=== PATIENT | female | born 1990 | race Caucasian/White ===

== ENCOUNTER 2023-11-20 09:10 | Outpatient (AMB) | payer OTHER, SELFPAY ==
--- NOTE | 2023-11-20 10:32 | MHC.OFFWIV ---
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 Denies hearing loss, drainage from ear, ringing in the ear, dizziness, syncope. Patient denies sore throat, cough, fever, vomiting, diarrhea, headache. Patient denies current use of OCP. PFSH Social History Patient Tobacco Use Status: Never used Tobacco Patient : No Review of Systems Const All systems reviewed & are unremarkable except as noted in HPI and below Physical Exam Vital Signs: Last Vital Signs Temp 97.9 F 11/20/23 10:44 Pulse 92 11/20/23 10:44 BP 120/80 11/20/23 10:44 Pulse Ox 96 11/20/23 10:44 Oxygen Delivery Method Room Air 11/20/23 10:44 BMI result Body Mass Index 26.5 General: awake, alert, oriented. Answers questions appropriately. Fully engaged in examination. Skin: warm, dry, intact HEENT: Normocephalic. Hearing intact. Left TM erythematous, cloudy. Right TM normal to visual inspection. +cerumen bilaterally Cardiac: External chest normal in appearance. Respiratory: No cough, audible wheezing or stridor. Abdomen: without gross distension. MS: No obvious swelling or deformities. Neurological: Oriented to person, place, time and situation. Thought process intact. Psychiatric: Appropriate mood and affect. Good judgment and insight. Assessment & Plan Assessment & Plan (1) Left otitis media: Code(s): H66.92 - Otitis media, unspecified, left ear Plan presented to [facility] today with complaints of left ear pain Augmentin DS BID for 7 days. Drink plenty of fluids, avoid getting anything in the ear, tylenol/motrin as needed. All questions and concerns were addressed during the visit, patient agrees with the plan. Follow up with pcp or in walkin for any new or worsening symptoms. Medications: New amoxicillin-pot clavulanate 875-125 mg 1 tab PO BID 14 tabs 0RF Coding Level of Care Code New Pt Level 4 (61616) Diagnoses Left otitis media H66.92
[2023-11-20 10:44] VITALS: BP 120/80; PULSE 92; TEMP 36.6; O2SAT 96; BMI 26.5
== END 2023-11-20 11:31 | disposition home or self-care (01) ==
PROVIDERS: Visit Provider Registered Nurse Emergency
DX: H66.92 Otitis media, unspecified, left ear (principal)
CPT/HCPCS: 99204

== ENCOUNTER 2023-11-27 08:19 | Outpatient (AMB) | payer OTHER, SELFPAY ==
[2023-11-27 08:34] VITALS: BP 112/70; PULSE 64; TEMP 36.8; O2SAT 97; BMI 26.5
--- NOTE | 2023-11-27 08:34 | MHC.OFFWIV ---
Intake Vital Signs 11/27/23 08:34 Height 5 ft 5 in Weight 159 lb BMI 26.5 BP 112/70 Blood Pressure Location Lt brachial Position Sitting Pulse 64 Pulse Source Pulse Oximeter Temp 98.2 F Temp Source Temporal Artery Scan Pulse Oximetry (%) 97 Oxygen Delivery Method Room Air Intake Visit Reasons: EP Ear infection unable to hear (masked) Intake Note: pt is here today for ear infection unable to hear started 1 week ago Patient Tobacco Use Status: Never used Tobacco Allergies No Known Allergies Allergy (Verified 11/27/23 08:34) Do you need a note to return to daycare/school/sports/work: No HPI HPI Comments History of Present Illness Details presents to walkin today with complaints of persistent left ear pain and sinus congestion for last 10 days. Now with cough for last 5 days, nonproductive, worse with cold air. Denies history of asthma or RAD Treated one week ago for left ear infection, reports does not feel any improvement in left ear symptoms Denies drainage from ear, ringing in the ear, dizziness, syncope. Patient denies sore throat, fever, vomiting, diarrhea, headache. PFSH Social History Patient Tobacco Use Status: Never used Tobacco Review of Systems Const All systems reviewed & are unremarkable except as noted in HPI and below Physical Exam Vital Signs: Last Vital Signs Temp 98.2 F 11/27/23 08:34 Pulse 64 11/27/23 08:34 BP 112/70 11/27/23 08:34 Pulse Ox 97 11/27/23 08:34 Oxygen Delivery Method Room Air 11/27/23 08:34 BMI result Body Mass Index 26.5 General: awake, alert, oriented. Answers questions appropriately. Fully engaged in examination. Skin: warm, dry, intact HEENT: Normocephalic. Hearing intact. Left TM erythematous, Right TM normal to visual inspection. +cerumen bilaterally Cardiac: External chest normal in appearance. Respiratory: No cough, audible wheezing or stridor. LSCTAB. Abdomen: without gross distension. MS: No obvious swelling or deformities. Neurological: Oriented to person, place, time and situation. Thought process intact. Psychiatric: Appropriate mood and affect. Good judgment and insight. Assessment & Plan Assessment & Plan (1) Left otitis media: Code(s): H66.92 - Otitis media, unspecified, left ear Plan URI, no abx warranted. Left ear discomfort, erythema persist. Likely Viral. Benzonatate 100mg po bid as needed Prednisone 40mg po daily X 5 days Meloxicam 7.5mg daily X 10 days Rest, drink plenty of fluids, tylenol as needed. Follow up with pcp or in clinic for any new or worsening symptoms. Go to ER for shortness of breath, chest pain, palpitations, weakness, dizziness. Medications: New benzonatate 100 mg PO BID PRN 20 caps 0RF cough meloxicam 7.5 mg PO DAILY 10 tabs 0RF prednisone 40 mg (2 x 20 mg) PO DAILY 5 days 10 tabs 0RF Coding Level of Care Code Est Pt Level 4 (66340) Diagnoses Left otitis media H66.92
== END 2023-11-27 09:50 | disposition home or self-care (01) ==
PROVIDERS: Visit Provider Registered Nurse Emergency
DX: H66.92 Otitis media, unspecified, left ear (principal)
CPT/HCPCS: 99213

== ENCOUNTER 2025-02-20 10:01 | Outpatient (AMB) | payer OTHER, SELFPAY ==
--- NOTE | 2025-02-20 10:55 | MHC.PC.OV ---
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 known: Yes Last menstrual period: 02/13/25 Allergies No Known Allergies Allergy (Verified 02/20/25 11:08) Medication List - Last Reconciled 02/20/25 by Karin Granados MD propranolol 40 mg PO .Once a day as needed Tobacco use date assessed: 02/20/25 Dental Screening Dental Screen Date: 02/20/25 Did you have a dental visit in the last 12 months?: Yes Did you have a dental problem in the last 6 months where you did not have access to dental care?: No Was dental information given to patient?: Patient has dentist 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 She has no specific concerns at present time. Does not want to get any of the offered vaccines. Has been diagnosed with social anxiety disorder, currently dealing with a through behavioral techniques. Not on any medication [facility] Medical History (Updated 02/20/25 @ 11:27 by Karin Granados MD) Vaccine refused by patient Social anxiety disorder Surgical History (Updated 02/20/25 @ 11:14 by Karin Granados MD) No pertinent past surgical history Family History (Updated 02/20/25 @ 11:15 by Karin Granados MD) Father Bladder cancer Social History Housing: House Patient Tobacco Use Status: Never used Tobacco e-Cigarette/Vaping Use: Never Used service: No Current occupational status: employed Cognitive needs: No Hearing needs: No Vision needs: No Female Reproductive History Menstrual Date of last menstrual period: 02/13/25 History of abnormal pap smear: No Questionnaire PHQ-9 Over the last 2 weeks, how often have you been bothered by any of the following problems? 1. Little interest or pleasure in doing things: not at all 2. Feeling down, depressed, or hopeless: not at all 3. Trouble falling or staying asleep, or sleeping too much: not at all 4. Feeling tired or having little energy: several days 5. Poor appetite or overeating: not at all 6. Feeling bad about yourself - or that you are a failure or have let yourself or your family down: not at all 7. Trouble concentrating on things, such as reading the newspaper or watching television: several days 8. Moving or speaking so slowly that other people could have noticed. Or the opposite - being so fidgety or restless that you have been moving around a lot more than usual: not at all 9. Thoughts that you would be better off or of hurting yourself in some way: not at all Total score: 2 Depression Screening Interpretation: Negative Depression Screening Done: Yes 70725 - PHQ-9 Billing: Yes Source: Developed by Drs. Jose Lyon, Gina Porter, Nestor Becerra and colleagues, with an educational kristine from [employer]. Thrive Questionnaire Date Thrive assessed: 02/14/25 I am a: Patient What is your living situation today?: I have a steady place to live Within the past 12 months, did the food you bought not last and you didn't have the money to get more?: Never true Within the past 12 months, did you worry whether your food would run out before you got money to buy more?: Never true Do you have trouble paying for medicines?: I choose not to answer this question Do you have trouble getting transportation to medical appointments?: No Do you have trouble paying your heating and electricity bill?: I choose not to answer this question Do you have trouble taking care of your child, family member or friend?: No Do you have trouble with day-to-day activities such as bathing, preparing meals, shopping, managing finances, etc.?: No Are you currently unemployed and looking for a job?: No Are you interested in more education?: No Please select the resources that you would like help with: None Currently or been in a relationship where the following occur: I choose not to answer THRIVE Score: 0 AUDIT C Alcohol Use Questionnaire (AUDIT-C) 1. How often do you have a drink containing alcohol?: 2-3 times a week 2. How many drinks containing alcohol do you have on a typical day when you are drinking?: 3 or 4 3. How often do you have six or more drinks on one occasion?: Never Total Score: 4 SARAH-7 AMB Questionnaire SAARH-7 Feeling nervous, anxious, or on edge: 1 = Several days Not being able to stop or control worryin = Several days Worrying too much about different things: 1 = Several days Trouble relaxin = Several days Being so restless that it is hard to sit still: 0 = Not at all Becoming easily annoyed or irritable: 0 = Not at all Feeling afraid as if something awful might happen: 1 = Several days Total SARAH-7 score (0-4 normal; 5-9 mild; 10-14 moderate; 15-21 severe): 5 Source: Developed by Drs. Jose Lyon, Gina Porter, Nestor Becerra and colleagues, with an educational kristine from [employer]. SARAH-7 Assessment Billing SARAH-7 Assessment Tool: SARAH-7 Assessment 80188 Review of Systems Const Reports no additional complaints Eyes Reports no additional complaints ENT Details: Dental prophylaxis q.6 months Card Reports no additional complaints Resp Reports no additional complaints GI Reports no additional complaints Reports no additional complaints Musc Reports no additional complaints Skin/Breast Denies breast pain, Denies breast mass and Denies rash Neuro Reports no additional complaints Psych Reports no additional complaints Endo Reports no additional complaints Raman/Lymph Reports no additional complaints Aller/Immun Reports no additional complaints Physical exam (Primary Care) Vital Signs: Last Vital Signs Temp 98.0 F 02/20/25 10:58 Pulse 75 02/20/25 10:58 Resp 16 02/20/25 10:58 BP 110/72 02/20/25 10:58 Pulse Ox 99 02/20/25 10:58 Oxygen Delivery Method Room Air 02/20/25 10:58 BMI result Body Mass Index 28.0 Tobacco/Smoking Status: Tobacco use Status Tobacco use date assessed 02/20/25 02/20/25 11:04 Patient Tobacco Use Status Never used Tobacco 02/20/25 10:56 e-Cigarette/Vaping Use Never Used 02/20/25 11:04 PHQ-9: PHQ-9 Score PHQ-9: Total score 2 02/25/25 11:42 Depression Screening Interpretation: Negative Thrive Assessment: Date of Thrive Assessment Date Thrive assessed 02/14/25 02/20/25 10:56 Currently or been in a relationship where the following occur: I choose not to answer Const General: no acute distress and alert Orientation/consciousness: patient oriented x3 HENMT Head: Yes normocephalic Ears: external ears normal, TM's normal bilaterally and EAC's normal General nose exam: Normal external nose present Face and sinus: Yes face symmetric Mouth: Normal oral and palatal mucosa present, tongue normal, oropharynx normal and moist mucous membranes Eyes General: appearance normal, both eyes and all related structures Eyelids: Yes eyelids normal Conjunctivae: conjunctivae normal Sclerae: sclerae normal Pupils: Equal, round and reactive pupils present EOM: EOMs intact bilaterally Neck Other: Thyroid nonpalpable Neck: Yes full ROM, Yes no lymphadenopathy and Yes supple Chest Breast/axilla inspection: normal inspection of the breasts Breast/axilla palpation: normal palpation of the breasts Resp Effort & Inspection: normal respiratory effort and able to speak in complete sentences Auscultation: clear to auscultation bilaterally Cardio Rate: regular rate Rhythm: regular rhythm Heart sounds: S1 normal heart sound present and S2 normal heart sound present GI Palpation (GI): Soft to palpation, nontender, no guarding and no masses Auscultation: normal bowel sounds General: Yes no CVA tenderness Back/Spine/Pelvis Back: no CVA tenderness and No back tenderness Skin General skin exam: no rashes or lesions noted Neuro General: patient oriented x3, gait normal, moves all extremities, Normal light touch and pain sensation, no focal motor deficits and CN's II-XI intact bilaterally Cranial nerves: Yes Equal, round and reactive pupils present Cognition (Neuro): normal cognition Gait exam (Neuro): Normal gait present Motor exam (neuro): 5/5 motor strength present throughout Extrem General: Yes normal to inspection, Yes full ROM, Yes no joint enlargement, Yes no pedal edema and Yes normal gait Psych Appearance: grossly normal and well kempt Mental Status: mental status grossly normal Speech and movement: Normal speech and movement present Affect: normal affect Attitude: cooperative Thought process: Normal thought process present Thought content: Normal thought content present Coding Level of Care Code New Pt Prev Care 18-39yr([id number] Diagnoses Annual visit for general adult medical examination with abnormal findings Z00.01 Screening for malignant neoplasm of cervix Z12.4 Vaccine refused by patient Z28.20 Social anxiety disorder F40.10 Additional Codes SARAH-7 Assessment Billing - SARAH-7 Assessment Tool: SARAH-7 Assessment 96620 ([id number]) PHQ-9 - 10456 - PHQ-9 Billing: Yes ([id number]) Assessment & Plan Assessment & Plan (1) Annual visit for general adult medical examination with abnormal findings: Code(s): Z00.01 - Encounter for general adult medical examination with abnormal findings Plan: Will check appropriate labs. Recommended dental visit every 6 months and regular eye exams, at least every 2 years. Take adequate calcium in diet and vitamin-D 3 at 2000 IU per cap once a day, in addition to weight-bearing exercises to help maintain good muscle tone and weight control. Instructed to do self-breast exam, and recommended to get yearly mammogram, starting at age 40. Routine vaccinations declined by patient (2) Screening for malignant neoplasm of cervix: Code(s): Z12.4 - Encounter for screening for malignant neoplasm of cervix Plan: Referred to [facility] for her routine Pap and pelvic exam (3) Vaccine refused by patient: Code(s): Z28.20 - Immunization not carried out because of patient decision for unspecified reason Category: Medical Plan: Patient declining all offered vaccine (4) Social anxiety disorder: Code(s): F40.10 - Social phobia, unspecified Category: Medical Plan: Declined referral for counseling, will place her back on propranolol 40 mg 1 tablet once a day as needed for acute anxiety attacks . Discussed other ways to relieve stress including : exercise or a massage, Get enough rest, Avoid alcohol, caffeine, nicotine, and illegal drugs which can increase your anxiety level and cause sleep problems. Orders: Orders Lipid Panel 02/20/25 Z13.220 - Encounter for screening for lipoid disorders, Z13.1 - Encounter for screening for diabetes mellitus, Z00.01 - Encounter for general adult medical examination with abnormal findings Basic Metabolic Panel Fasting 02/20/25 Z13.220 - Encounter for screening for lipoid disorders, Z13.1 - Encounter for screening for diabetes mellitus, Z00. 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
[2025-02-20 10:58] VITALS: BP 110/72; PULSE 75; RESP 16; TEMP 36.7; O2SAT 99; BMI 28.0
--- OUTSIDE RECORDS SUMMARY | 2025-02-20 11:06 | XMS_ITS | Data Portability ---
Author Organization [facility], [address] Address [address] [place] [address] Assessment No assessment recorded. Plan of Treatment Reminders Order Date Submit Date Provider Last Modified By Organization Details Last Modified Time Details Appointments None recorded. Lab urinalysis, dipstick 2023 024 [place] [address], [address] [place], [address], 17:55:02 test, urine 2023 024 [place] [address], [address] [place], [address], 17:55:01 glucose, fingerstick , blood 2023 024 [place] [address] 21009_[facility], [address] [place], [address], 17:55:00 Referral None recorded. Procedures None recorded. Surgeries None recorded. Imaging None recorded. Medication Orders cephalexin 500 mg capsule [address]/[facility][id number], [address] [facility] [place], [address], 17:54:59 Patient TargetsNo targets recorded. Patient Instructions Encounter Date Encounter Id Patient Instructions Last Modified By Organization Details Last Modified Time 03/20/2024 [id number] specimen collection & handling* ИРИНА Not available 03/20/2024 18:00:40 Reason for Referral None Reported. Results Created Date Observation Date Name Description Value Unit Range Abnormal Flag Note LastModifiedBy Organization Detail LastModifiedTime 03/20/20 24 03/20/2024 gluco se, finge rstic k, blood blood sugar - non fasting 103 mg/dL 80-140 = normal normal Not Available 2099andrés [address] [place], [address], 03/20/2024 16:42:04 03/20/20 24 03/20/2024 gluco se, finge rstic k, blood blood sugar - fasting mg/dL 80-125 = normal Not Available [address]andrés [address] [place], [address], 03/20/2024 16:42:04 03/20/20 24 03/20/2024 pregn ronda test, urine Unknown Analyte negati ve Not Available vy hudson [address] [place], [address], 03/20/2024 16:24:46 03/20/20 24 03/20/2024 pregn ronda test, urine Unknown Analyte yes Not Available [address] [place], [address], 03/20/2024 16:24:46 03/20/20 24 03/20/2024 urina lysis , dipst ick Unknown Analyte Violet Not Available [address] [place], [address], 03/20/2024 16:23:34 03/20/20 24 03/20/2024 urina lysis , dipst ick Unknown Analyte Cloudy Not Available [facility] andrés [address] [place], [address], 03/20/2024 16:23:34 03/20/20 24 03/20/2024 urina lysis , dipst ick Unknown Analyte 100 mg/dL Not Available [address] [place], [address], 03/20/2024 16:23:34 03/20/20 24 03/20/2024 urina lysis , dipst ick Unknown Analyte Negati ve Not Available [address] [place], [address], 03/20/2024 16:23:34 03/20/20 24 03/20/2024 urina lysis , dipst ick Unknown Analyte Negati ve Not Available [address] [place], [address], 03/20/2024 16:23:34 03/20/20 24 03/20/2024 urina lysis , dipst ick Unknown Analyte 1.015 Not Available [address] [place], [address], 03/20/2024 16:23:34 03/20/20 24 03/20/2024 urina lysis , dipst ick Unknown Analyte Modera te Not Available [address] [place], [address], 03/20/2024 16:23:34 03/20/20 24 03/20/2024 urina lysis , dipst ick Unknown Analyte 5.0 Not Available [facility] [place], [address], 03/20/2024 16:23:34 03/20/20 24 03/20/2024 urina lysis , dipst ick Unknown Analyte 100 mg/dL Not Available [address] [place], [address], 03/20/2024 16:23:34 03/20/20 24 03/20/2024 urina lysis , dipst ick Unknown Analyte 1.0 E.U./d L Not Available prabhu hudson [address] [place], [address], 03/20/2024 16:23:34 03/20/20 24 03/20/2024 urina lysis , dipst ick Unknown Analyte Positi ve Not Available 20[address]mona [address] [place], [address], 03/20/2024 16:23:34 03/20/20 24 03/20/2024 urina lysis , dipst ick Unknown Analyte Large Not Available 2099Naomi_ andrés [address], [address], 03/20/2024 16:23:34 Result Notes None recorded. Problems Name Problem SNOMED Code Status Onset Date Resolution Date Notes Provider Name and Address Organization Details Recorded Time Dysuria 06113364 Active 024 FRANK SANDHU [address] [place], [address] , [place] - [facility] 4 16:41:32 Abnormal urine 446329278 Active 024 FRANK SANDHU [address] [place], [address] , [place] - [facility] 16:41:43 Problem Notes None recorded. Medical Equipment None Reported. Allergies No known drug allergies Medications Name Sig Start Date Stop Date Status Note LastModified by Organization Details LastModified Time cephalexin 500 mg capsule Take 1 capsule 3 times a day by oral route for 5 days, for UTI. 024 active Not Available Not Available Not Avai lable Vitals Date Recorded Body height Body mass index (BMI) Body weight Pain severity - 0-10 verbal numeric rating [Score] - Reported Oxygen saturation Oxygen saturation in Arterial blood by Pulse oximetry Heart rate Body temperature Respiratory rate Systolic blood pressure Diastolic blood pressure Provider Name and Address Organization Details Last Updated DateTime 167.64 cm 25.8 kg/m2 83939.7 8 g 5 98 % 98 % 71 /min 97.6 [degF] 18 /min 122 mm[Hg] 75 mm[Hg] Shani Kimbrough [place] - [facility] 16:24:58 Social History Question Answer Notes LastModified by Organizat ion Details LastModified Time Tobacco Smoking Status Never Smoker Shani Kimbrough phoebe [place] - [facility] 03/20/2024 16:23:10 What Is Your Level Of Alcohol Consumption? Occasional Information not available 03/20/2024 Are You Currently Employed? Yes Information not available 03/20/2024 Have You Had A Flu Shot This Season? No Information not available 03/20/2024 Have You Had Direct Contact, Or Contact During Intimacy, With Monkeypox Rash, Scabs, Or Body Fluids From A Person With Monkeypox? No Information not available 03/20/2024 What Is Your Relationship Status? Information not available 03/20/2024 Do You Use Any Illicit Or Recreational Drugs? No Information not available 03/20/2024 Have You Recently Traveled Abroad? No Information not available 03/20/2024 Are You Currently In School? No Information not available 03/20/2024 Do You Or Have You Ever Used Any Other Forms Of Tobacco Or Nicotine? No Information not available 03/20/2024 Sex: Unknown Functional Status None recorded. Mental Status None recorded. Family History Relationship Description Onset Age of this Age Resolved Age Notes LastModified by Organization Details LastModified Time Father No current problems or disability Not available 03/20 16:22:59 Mother No current problems or disability Not available 03/20 16:22:59 Medical History No medical history recorded. Gynecological History Statement/Question Response Date of LMP 03/04/2024 Is there any chance of ? No Obstetrics History GPAL:G 0 P 0 0 0 0 Past Encounters Encounter ID Performer Location Encounter Start Date Encounter Closed Date Diagnosis/Indication Diagnosis SNOMED-CT Code Diagnosis ICD10 Code Diagnosis Note [id number] [facility] [address] [address] 04/21/2020 12:46:27 04/21/2020 13:14:06 [id number] [facility] [address] [facility] [place] [address] 10/12/2018 14:06:03 10/12/2018 14:46:17 [id number] [address] [address] [facility] [place] [address] 12/07/2019 17:16:25 12/07/2019 17:53:42 [id number] [address] [address] [place] [address] 09/21/2019 12:17:35 09/21/2019 13:01:47 [id number] [address] [address] [place] [address] 01/16/2019 16:05:31 01/16/2019 16:37:10 [id number] [address] [address] [address] [place] [address] 09/22/2016 18:49:25 09/22/2016 19:20:18 [id number] [address] [address] [address] [place] [address] 08/19/2018 19:08:01 08/19/2018 19:39:18 [id number] [address] [address] [address] [place] [address] 10/10/2017 14:01:58 10/10/2017 14:53:55 [id number] FRANK SANDHU [address] [place] [address] 03/20/2024 16:18:04 03/20/2024 16:49:30 Dysuria 14443566 R30.0 You are going to be treated for a Urinary Tract Infection. The following are recommenda tions to help with your symptoms and recovery:1 . Drink Plenty of fluids - Stay hydrated2. Finish full antibiotic course3. I recommend starting a Probiotic - I recommend Florastor4 . If you take Azo - this will help the burning and urgency feeling - just be aware it will turn your urine bright yellow. I would not hesitate to be seen again if you develop:1. Severe Back Pain2. Abdominal Pain3. Nausea and Vomiting4. Vaginal Discharge or Bleeding5. Fever > 101.0 You symptoms should improve within 72 hours for a typically UTI. If a urine culture was sent out to the lab for you we should get the results back within 4 days. This will be able to prove that your symptoms are caused by a UTI and it will also verify that the correct antibiotic was prescribed . Thank you for using [facility] - please don't hesistate to call our office if you have any questions or concerns. Abnormal urine 678351391 R82.90 Glucose normal range - no concern for diabetes. Health Concerns Section Related Observation LastModified by Organization Detai ls LastModified Time None Recorded Concern Status LastModified by Organization Details LastModified Time None Recorded Advance Directives Directive None Recorded Payers Insurance Date Sequence Insurance Name Policy Number Policy Eduardo Covered Member ID Eduardo Member ID Guarantor Name 03/20/2024 1 [facility] [id number] Denise Bedoya [id number] Denise Bedoya Notes Date Note Type Note Provider Name and Address Organization Details Recorded Time 4 text/html Urinary Complaint FemaleReported bypatient.source of patient informationInformation obtained from patient; Patient arrived at Urgent Care ambulatory UTI Symptoms:no blood in the urine; no vaginal discharge; no pain in the flank; no fever/chills; no incontinence; no recurrent UTI; no known exposure to STD;pain during urination;urgency;urinary frequency; Pain stopped after taking Azo. she took an at home test and it was positive but it was after she took the azo. The patient denies any blood. Mild suprapubic pain. No N/V/D/Fever Severity:mild Duration:1 days Modifying Factors:nothing gives relief FRANK SANDHU [address] [place], [address], [place] - [facility] 03/20/2024 17:55:06 OBGyn Episode No OBEpisode recorded.
--- OUTSIDE RECORDS SUMMARY | 2025-02-20 11:06 | XMS_ITS | Patient Health Record ---
Author Organization [facility], [facility] Address [address] [place] [phone] Support Name Relationship Address Phone Denise Bedoya Guarantor Unknown Unavailable REASON FOR REFERRAL No Information PLAN OF TREATMENT No Information
== END 2025-02-20 11:28 | disposition home or self-care (01) ==
LOC: HO.HMCC 10:02
PROVIDERS: PCP Internal Medicine; Visit Provider Internal Medicine
DX: Z00.01 Encounter for general adult medical examination with abnormal findings (principal); Z12.4 Encounter for screening for malignant neoplasm of cervix; Z28.20 Immunization not carried out because of patient decision for unspecified reason; F40.10 Social phobia, unspecified

== ENCOUNTER → 2025-02-20 10:01 | Outpatient (BNVA) | payer OTHER, SELFPAY | PROVIDERS: PCP Internal Medicine; Visit Provider Internal Medicine | DX: Z00.01 Encounter for general adult medical examination with abnormal findings (principal); F40.10 Social phobia, unspecified; Z28.20 Immunization not carried out because of patient decision for unspecified reason | CPT/HCPCS: 96127 ==